=== PATIENT | female | born 1980 | race Caucasian/White ===

== ENCOUNTER 2016-03-17 21:43 | Emergency (ER) | payer BC ==
[~2016-03-17] VITALS: Ht 172.7 cm; Wt 102.4 kg
[~2016-03-17 21:43] MED LIST: CLARITIN10 M3 PO; CYMBALTA30 MG PO; CYMBALTA60 MG PO; DIPHENHYDRAMINE50 MG PO; PROMETHAZINE HC25 M1 PO; PROTONIX40 MG PO; RANITIDINE HCL150 M1 PO; TRAMADOL HCL50 MG PO
[2016-03-17 22:16] LABS: HEMATOCRIT 38.4 % (36.0-46.0); MCH 25.5 PG (29.0-34.0); MCV 79.5 FL (83-99); MEAN PLAT.VOLUME 11.6 uM^3 (9.5-12.4); PLATELET COUNT 201 K/uL (156-360); RBC DIS.WIDTH-CV 15.8 % (11.8-14.6); RBC DIS.WIDTH-SD 44.9 % (39-53); RED BLOOD COUNT 4.83 M/uL (3.80-5.20); WHITE BLOOD COUNT 10.2 K/uL (4.1-10.2)
[2016-03-17 22:26] LABS: CHLORIDE 106 mEq/L (99-109); POTASSIUM 3.7 mEq/L (3.7-5.4); SODIUM 138 mEq/L (136-147)
[2016-03-17 22:26] LABS: ADD MIUA? NO; BILIRUBIN NEGATIVE; BLOOD NEGATIVE; COLOR YELLOW ((YELLOW)); GLUCOSE (STRIP) NEGATIVE; KETONES NEGATIVE; LEUKOCYTES NEGATIVE; NITRITE NEGATIVE; PH, URINE 7.5 (5-8); PROTEIN (STRIP) NEGATIVE; SPECIFIC GRAVITY 1.021 (1.000-1.030); UCUL ADDED? NO; UROBILINOGEN 0.2 MG/DL (0.2-1.0)
[2016-03-17 22:28] LABS: GLUCOSE 105 mg/dL (70-99)
[2016-03-17 22:30] LABS: ANION GAP 11 MEQ/L (2-14); TOTAL BILIRUBIN 0.2 mg/dL (0.0-1.0)
[2016-03-17 22:32] LABS: ALKALINE PHOSPHATASE 99 IU/L (3-129); GFR ESTIMATE (CALCULATED) > 59 mL/min/
[2016-03-17 22:33] LABS: UREA NITROGEN (BUN) 14 mg/dL (9-23)
[2016-03-17 22:35] LABS: LIPASE 18 U/L (1.0-51.0)
[2016-03-17 22:41] LABS: QUANTITATIVE HCG < 4.0 MIU/ML
[2016-03-18] MEDS ORDERED: PERCOCET 5/31 TABLET PO (00:44)
[2016-03-18] MEDS ORDERED: FLAGYL500 MG PO (00:44)
[2016-03-18] MEDS ORDERED: ZOFRAN ODT4 MG PO (00:44)
[2016-03-18 00:56] VITALS: BP 141/72
[2016-03-18] MEDS ORDERED: CIPROFLOXACIN500 M1 PO (00:58)
== END 2016-03-18 00:58 | disposition home or self-care (01) ==
LOC: RME 21:43 → EME 21:43 → RME 03-18 00:58
DX: K57.32 Diverticulitis of large intestine without perforation or abscess without bleeding (principal); R39.15 Urgency of urination
CPT/HCPCS: 74176; 80053; 81003; 83690; 84702; 85027; 99281; 99284